=== PATIENT | female | born 1955 | race Two or more races ===

== ENCOUNTER 2017-06-27 05:08 | Inpatient (IN) | payer OTHER ==
[~2017-06-27] VITALS: Ht 162.6 cm; Wt 63.5 kg
[2017-06-27] VITALS (11 sets, daily range): BP systolic 105–131; BP diastolic 53–78
[2017-06-27] MEDS ORDERED: METOCLOPRAMIDE HCL 10 MG/2 ML VIAL ONE (05:26)
[2017-06-27] MEDS ORDERED: oxyCODONE HCL SR 10MG TAB.SR.12H PO ONE (05:26)
[2017-06-27] MEDS ORDERED: CELECOXIB 100 MG CAPSULE ONE (05:27)
[2017-06-27] MEDS ORDERED: ACETAMINOPHEN ES 500 MG TABLET ONE (05:27)
[2017-06-27] MEDS ORDERED: ANESTHESIA TRAY IN PYXIS 1 EA TRAY MC ONE (06:13)
[2017-06-27] MEDS ORDERED: KETOROLAC TROMETHAMINE INJ 30 MG/ML VIAL ONE ×2 (06:35→10:31)
[2017-06-27] MEDS ORDERED: BUPIVACAINE 0.25% 75 MG/30 ML VIAL ONE (06:35)
[2017-06-27] MEDS ORDERED: BACITRACIN 50000 UNITS/VIAL ONE (06:53)
[2017-06-27] MEDS ORDERED: MIDAZOLAM HCL 2 MG/2ML VIAL ONE (06:56)
[2017-06-27] MEDS ORDERED: MORPHINE SULFATE/PF 10 MG/10ML (1MG/ML) AMPUL ONE (06:56)
[2017-06-27] MEDS ORDERED: BUPIVACAINE 0.75% DEXT-PF 2 ML AMPUL ONE (07:01)
[2017-06-27] MEDS ORDERED: TRANEXAMIC ACID 1,500 MG in SODIUM CHLORIDE IRRIG SOLUTION 85 ML IR ONE (08:00)
[2017-06-27] MEDS ORDERED: MORPHINE SULFATE INJ 4 MG/ML DISP.SYRIN ONE (08:15)
[2017-06-27] MEDS ORDERED: oxyCODONE IR immediate release 5 MG ONE (10:34)
--- NOTE | 2017-06-27 11:05 | NUR ---
RN NOTES RECEIVED PATIENT FROM PACU DEPARTMENT, PATIENT IS A/OX4, VERBALLY RESPONSIVE, BREATHING EVEN AND UNLABORED, NO SOB NOTED, RECEIVED REPORT FROM RN FROM PACU, VITAL SIGNS OBTAINED AND STABLE, DAUGHTER AT BEDSIDE, ABDUCTOR PILLOW IN PLACE, PT ABLE TO MOVE RIGHT FOOT, POSITIVE FOR PEDAL PULSE, SKIN CHECK FOR CIRCULATION. PATIENT'S NEEDS ATTENDED AND MET, DENIES PAIN AT THIS TIME. WILL CONTINUE TO MONITOR.
[2017-06-27] MEDS ORDERED: MAGNESIUM HYDROXIDE 30 ML UDC PO PRN (12:30)
[2017-06-27] MEDS ORDERED: MORPHINE SULFATE INJ 4 MG/ML DISP.SYRIN IV PRN (12:30)
[2017-06-27] MEDS ORDERED: HYDROMORPHONE INJ 2 MG/ML DISP.SYRIN IV PRN (12:30)
[2017-06-27] MEDS ORDERED: diphenhydrAMINE HCL 25 MG CAPSULE PO PRN (12:30)
[2017-06-27] MEDS ORDERED: ONDANSETRON HCL/PF 4 MG/2 ML VIAL IVP PRN (12:30)
[2017-06-27] MEDS ORDERED: DULCOLAX 10 MG/SUPP.RECT RC PRN (12:30)
[2017-06-27] MEDS ORDERED: NALOXONE HCL 0.4 MG/ML AMPUL IV PRN (12:30)
[2017-06-27] MEDS ORDERED: COLACE 100 MG CAPSULE PO PRN (12:30)
[2017-06-27] MEDS ORDERED: TYLENOL 650 MG TABLET PO PRN (12:30)
--- NOTE | 2017-06-27 12:30 | NUR ---
RN NOTES SKIN ASSESSMENT COMPLETED, SKIN DRY AND INTACT. RIGHT HIP INCISION CLEAN AND DRY. NO S/SX OF BLEEDING NOTED.
[2017-06-27] MEDS ORDERED: METF-442 PO (12:34)
[2017-06-27] MEDS ORDERED: LISI10TA5 PO (12:34)
[2017-06-27] MEDS ORDERED: ATOR20TA PO (12:34)
[2017-06-27] MEDS ORDERED: BIMA2.5D5 EACHEYE (12:34)
[2017-06-27] MEDS ORDERED: TIMO5SOL11 EACHEYE (12:34)
[2017-06-27] MEDS: ONDANSETRON HCL/PF 4 MG/2 ML VIAL IVP SCH ×3 (12:47→23:45)
[2017-06-27] MEDS ORDERED: DEXTROSE 50%-WATER 50 ML DISP.SYRIN IV PRN (13:30)
[2017-06-27] MEDS ORDERED: Z GUARD REMEDY 2 OZ OINT TP PRN (13:30)
[2017-06-27] MEDS: IV 1/2NS 1000 ML 1,000 ML IV PRN (14:24)
--- NOTE | 2017-06-27 15:00 | NUR ---
RN NOTES PATIENT WAS SEEN AND EVALUATED BY PHYSICAL THERAPY, PATIENT WAS ABLE TO AMBULATE WITH WALKER. ENCOURAGED PATIENT TO TURN SIDE TO SIDE TO PREVENT SKIN BREAKDOWN, PATIENT VERBALIZED UNDERSTANDING. PATIENT ASSISTED WITH TURNING AND REPOSITIONING. RAY HEELS OFFLOADED. WILL CONTINUE TO MONITOR.
[2017-06-27] MEDS: ANCEF 1 G in IV D5W 50 ML IV SCH ×2 (15:36→23:47)
[2017-06-27 16:30] LABS: CREATININE 0.8 mg/dL (0.6-1.3); POTASSIUM 4.9 mmol/L (3.5-5.1)
[2017-06-27 16:51] LABS: BASOPHILS % (AUTO) 0.1 % (0.0-2.0); HEMATOCRIT 39 % (33-45); HEMOGLOBIN 13.2 g/dL (11.5-14.8); LYMPHOCYTES # (AUTO) 0.5 /CMM (0.8-4.8); LYMPHOCYTES % (AUTO) 3.2 % (20.0-44.0); MEAN CORPUSCULAR HGB CONC 34 g/dl (31.0-36.0); MEAN CORPUSCULAR VOLUME 87 fL (82-100); MONOCYTES # (AUTO) 0.3 /CMM (0.1-1.30); MONOCYTES % (AUTO) 1.9 % (2.0-12.0); NEUTROPHILS # (AUTO) 14.9 /CMM (1.8-8.9); NEUTROPHILS % (AUTO) 94.8 % (43.0-81.0); PLATELET COUNT (AUTO) 240 /CMM (150-450); RDW COEFFICIENT OF VARIATION 14.2 (11.5-15.0); RED BLOOD CELL COUNT(AUTO) 4.47 MIL/uL (4.0-5.2); WHITE BLOOD COUNT (AUTO) 15.8 K/uL (4.3-11.0)
[2017-06-27] MEDS: CELECOXIB 100 MG CAPSULE PO SCH (17:07)
[2017-06-27] MEDS: DOCUSATE SODIUM 100 MG CAPSULE PO SCH (17:07)
[2017-06-27] MEDS: METFORMIN 500 MG TABLET PO SCH (17:07)
[2017-06-27] MEDS: HYDROCODONE/APAP 5/325MG 1 EACH TABLET PO SCH ×2 (17:08→21:04)
[2017-06-27] MEDS: BLOOD SUGAR DIAGNOSTIC 1 EACH STRIP IN SCH ×2 (17:36→21:06)
[2017-06-27] MEDS: LISINOPRIL (10MG) 10 MG TABLET PO SCH (17:40)
[2017-06-27] MEDS: INSULIN REGULAR, HUMAN 100 UNIT/ML 3 ML VIAL SQ PRN ×2 (17:45→21:11)
[2017-06-27] MEDS: KETOROLAC TROMETHAMINE INJ 30 MG/ML VIAL IV SCH ×2 (17:47→23:46)
--- NOTE | 2017-06-27 18:18 | NUR ---
RN NOTES RESPIRATION RATE CHECKED QHOURLY AND WITHIN RANGE. 18-20 RESP/MIN. LEVEL OF CONSCIOUSNESS AND PAIN CHECKED EVERY 4 HOURS, PATIENT REMAINED A/OX 4, VERBALLY RESPONSIVE AND PATIENT KEPT COMFORTABLE, PATIENT VERBALIZES PAIN IS AT A TOLERABLE LEVEL. CIRCULATION/MOTION/SENSATION OF RIGHT LOWER EXTREMITIES COMPLETED AND ALL POSITIVE RESULT.
--- NOTE | 2017-06-27 18:37 | NUR ---
RN NOTES PATIENT A/OX4, VERBALLY RESPONSIVE, NO RESPIRATORY DISTRESS NOTED, VITALS STABLE, PATIENT COMFORTABLE AT THIS TIME, DENIES PAIN OR DISCOMFORT. CONTINUE ON IVF AT 75ML/HR. PATIENT TOLERATING CURRENT DIET. BLE HEELS OFFLOADED, ABDUCTOR PILLOW IN PLACE. ALL NEEDS ATTENDED AND MET, CALL LIGHT WITHIN REACH, WILL ENDORSE TO STAFF PSYCHIATRIST FOR IGOR.
--- NOTE | 2017-06-27 19:00 | NUR ---
TICKET WRITER NOTES RECEIVE PT IN BED A/O X 3, NO S/S OF DISTRESS, SAFETY MEASURES IN PLACE, CALL LIGHT WITHIN REACH, WILL CONTINUE TO MONITOR
[2017-06-27] MEDS: LATANOPROST EYE DROP 0.005% 2.5 ML BOTTLE OP SCH (21:08)
[2017-06-27] MEDS ORDERED: AMBIEN 5 MG TABLET PO PRN (22:00)
[2017-06-28] VITALS (7 sets, daily range): BP systolic 98–143; BP diastolic 65–95
[2017-06-28] MEDS: HYDROCODONE/APAP 5/325MG 1 EACH TABLET PO SCH ×6 (01:26→20:55)
[2017-06-28] MEDS: IV 1/2NS 1000 ML 1,000 ML IV PRN ×2 (05:05→16:15)
[2017-06-28] MEDS: KETOROLAC TROMETHAMINE INJ 30 MG/ML VIAL IV SCH ×4 (06:00→23:53)
[2017-06-28] MEDS: ONDANSETRON HCL/PF 4 MG/2 ML VIAL IVP SCH (06:00)
[2017-06-28] MEDS: INSULIN REGULAR, HUMAN 100 UNIT/ML 3 ML VIAL SQ PRN ×3 (06:11→21:26)
[2017-06-28] MEDS: BLOOD SUGAR DIAGNOSTIC 1 EACH STRIP IN SCH ×4 (06:18→21:24)
--- NOTE | 2017-06-28 06:25 | NUR ---
BLACK OXIDE OPERATOR CLOSING NOTES ASLEEP AND EASILY AWAKEN, HOB ELEVATED, SR, 89. ATTACH TO TELE MONITOR. STABLE. NO S/S OF ACUTE DISTRESS OR SOB NOTED.TOLERATING ROOM AIR 99% RESPIRATIONS EVEN AND UNLABORED. NEEDS ATTENDED AND ANTICIPATED; AFEBRILE, KEPT CLEAN AND DRY AND COMFORTABLE. BLE HEELS OFFLOADED, ABDUCTOR PILLOW IN PLACE AT ALL TIMES, PATIENT VERBALIZES PAIN IS AT A TOLERABLE LEVEL. CIRCULATION AND SENSATION, MOTION OF RIGHT LOWER EXTREMITIES COMPLETED EVERY 4 HOURS AND ALL POSITIVE RESULT. SAFETY MEASURES IN PLACE. BED LOW LOCKED SIDE RAILS UP, CALL LIGHT AND BEDSIDE TABLE WITHIN REACH. ENDORSE TO THE NEXT SHIFT POC.
[2017-06-28 06:41] LABS: BASOPHILS % (AUTO) 0.4 % (0.0-2.0); EOSINOPHILS % (AUTO) 0.7 % (0.0-6.0); HEMATOCRIT 33 % (33-45); HEMOGLOBIN 11.3 g/dL (11.5-14.8); LYMPHOCYTES # (AUTO) 2.4 /CMM (0.8-4.8); LYMPHOCYTES % (AUTO) 22.3 % (20.0-44.0); MEAN CORPUSCULAR HGB CONC 34 g/dl (31.0-36.0); MEAN CORPUSCULAR VOLUME 87 fL (82-100); MONOCYTES # (AUTO) 0.6 /CMM (0.1-1.30); MONOCYTES % (AUTO) 5.6 % (2.0-12.0); NEUTROPHILS # (AUTO) 7.5 /CMM (1.8-8.9); PLATELET COUNT (AUTO) 187 /CMM (150-450); RDW COEFFICIENT OF VARIATION 14.7 (11.5-15.0); RED BLOOD CELL COUNT(AUTO) 3.77 MIL/uL (4.0-5.2); WHITE BLOOD COUNT (AUTO) 10.5 K/uL (4.3-11.0)
--- NOTE | 2017-06-28 07:15 | NUR ---
RN CLOSING NOTES PATIENT RESTING IN BED. NONLABORED BREATHING NOTED ON ROOM AIR. NO SIGNS OF DISTRESS NOTED. PATIENT SR WITH HR OF 67 ON TELE MONITOR. DENYING PAIN AT THE MOMENT. AOX4. IV SITE ON RIGHT FOREARM 18 PATENT AND INTACT. ABDUCTOR PILLOW IN PLACE. DIOR CATHETER DRAINING CLEAR YELLOW URINE. BED IN LOWEST L0CKED POSITION. CALL LIGHT WITHIN REACH.
[2017-06-28 07:20] LABS: CALCIUM, SERUM 8.1 mg/dL (8.5-10.1); CREATININE 0.7 mg/dL (0.6-1.3); PHOSPHORUS 4.1 mg/dL (2.5-4.9); POTASSIUM 4.3 mmol/L (3.5-5.1)
[2017-06-28] MEDS: DOCUSATE SODIUM 100 MG CAPSULE PO SCH ×2 (08:12→16:19)
[2017-06-28] MEDS: CELECOXIB 100 MG CAPSULE PO SCH ×2 (08:12→16:19)
[2017-06-28] MEDS: ATORVASTATIN 10 MG TABLET PO SCH (08:13)
[2017-06-28] MEDS: METFORMIN 500 MG TABLET PO SCH ×2 (08:14→16:19)
[2017-06-28] MEDS: ENOXAPARIN SODIUM 40 MG/0.4 ML DISP.SYRIN SQ SCH (08:17)
[2017-06-28] MEDS: TIMOLOL -XE 0.5% 5 ML BOTTLE EACHEYE SCH (08:20)
[2017-06-28] MEDS ORDERED: KEY,NONCONTROL,TO KEEP IN PYXI 1 EA MC ONE (10:35)
[2017-06-28] MEDS: LISINOPRIL (10MG) 10 MG TABLET PO SCH ×2 (17:43→17:46)
--- NOTE | 2017-06-28 18:28 | NUR ---
RN CLOSING NOTES PATIENT RESTING IN BED. NONLABORED BREATHING NOTED ON ROOM AIR. NO SIGNS OF DISTRESS NOTED. DENYING PAIN AT THE MOMENT. AOX4. IV SITE ON RIGHT FOREARM 18 PATENT AND INTACT. ABDUCTOR PILLOW IN PLACE. DIOR CATHETER DRAINING CLEAR YELLOW URINE. DIOR TO BE REMOVED TOMORROW IN AM PER DR LANCE Lozano'S ORDERS. PATIENT NOTED WITH NONLABORED BREATHING THROUGHOUT SHIFT WITH SPO2 WNL ON ROOM AIR. PATIENT AOX4 THROUGHOUT SHIFT. PATIENT MONITORED FOR MOTION SENSATIONS AND CIRCULATION PER DR. GUALLPA'S ORDERS. NO SENSORY DEFICITS NOTED. PULSES OF UPPER EXTREMITIES AND LOWER EXTREMITIES STRONG UPON PALPATION WITH CAPILLARY REFILL LESS THAN 3 SECONDS. DRESSING ON RIGHT HIP INTACT WITH NO DRAINAGE AND NO BLOOD NOTED. PATIENT ENCOURAGED AND EDUCATED TO USE INCENTIVE SPIROMETRY EVERY 1 HOUR BED IN LOWEST L0CKED POSITION. CALL LIGHT WITHIN REACH. WILL ENDORSE TO NEXT SHIFT
--- NOTE | 2017-06-28 19:20 | NUR ---
RN NOTES RECEIVED PATIENT SITTING UP IN BED, ALERT AND ORIENTED, VERBALLY RESPONSIVE, WITH NO SOB, BREATHING EVEN AND UNLABORED AND IN NO ACUTE DISTRESS. PT CONTINUES TO RECEIVE IVF ORDERED. DENIES PAIN AT THIS TIME. ALL PATIENT'S NEEDS ATTENDED TO. CALL LIGHT PLACED WITHIN EASY REACH. PLACED BED IN LOW POSITION AND LOCKED IN PLACE. WILL CONTINUE TO MONITOR PT.
[2017-06-28] MEDS: LATANOPROST EYE DROP 0.005% 2.5 ML BOTTLE OP SCH (21:24)
[2017-06-29] MEDS: HYDROCODONE/APAP 5/325MG 1 EACH TABLET PO SCH ×4 (01:00→12:26)
--- NOTE | 2017-06-29 01:30 | NUR ---
RN NOTES PATIENT REFUSED ROUTINE PAIN MEDICATION, NORCO 5/325 MG, AT THIS TIME. PER PATIENT SHE ISN'T READY TO TAKE IT. WILL CONTINUE TO MONITOR PT.
--- NOTE | 2017-06-29 01:45 | NUR ---
RN NOTES OFFERED PAIN MEDICATION TO PATIENT ONCE MORE, PER PATIENT SHE FEELS NAUSEATED. NURSING INTERVENTION INITIATED. WILL CONTINUE TO MONITOR PT.
--- NOTE | 2017-06-29 01:50 | NUR ---
RN NOTES PATIENT NOTED WITH 1 EPISODE OF EMESIS CONTAINING FOOD PARTICLES, NO HEMOPTYSIS NOTED. PAGED SLEEP SCIENTIST MD, DR RAMOS, WITH NEW ORDERS TO START ZOFRAN 4MG IV Q6H PRN. ALL ORDERS NOTED AND CARRIED OUT. PATIENT CONTINUES TO REFUSE SCHEDULED PAIN MEDICATION, RESPECTED PATIENT'S DECISION. ALL PATIENT'S NEEDS ATTENDED TO AT THIS TIME. WILL CONTINUE TO MONITOR PATIENT.
--- NOTE | 2017-06-29 02:00 | NUR ---
RN NOTE NORCO 5/325 MG 1 TAB WASTED WITH SHIV DANIELLE.
[2017-06-29] MEDS: ONDANSETRON HCL/PF 4 MG/2 ML VIAL IV PRN ×2 (02:07→07:59)
[2017-06-29] MEDS: IV 1/2NS 1000 ML 1,000 ML IV PRN (05:08)
--- NOTE | 2017-06-29 05:25 | NUR ---
RN NOTE PATIENT REFUSED TO TAKE SCHEDULED PAIN MEDICATION IT CAN MAKE HER MORE NAUSEOUS. EXPLAINED RISKS AND BENEFITS TO PT BUT SHE CONTINUES TO REFUSE. RESPECTED PATIENT'S DECISION. WILL CONTINUE TO MONITOR.
[2017-06-29 05:26] VITALS: BP 147/75
[2017-06-29] MEDS: KETOROLAC TROMETHAMINE INJ 30 MG/ML VIAL IV SCH ×2 (06:00→11:45)
--- NOTE | 2017-06-29 06:33 | NUR ---
RN CLOSING NOTES PATIENT IN BED, ASLEEP BUT EASILY AROUSABLE, ALERT AND ORIENTED X 4, VERBALLY RESPONSIVE. PATIENT WITH EPISODE OF NAUSEA AND VOMITING. NOTED PATIENT WITH NO SOB, BREATHING EVEN AND UNLABORED, NO CHANGES IN LOC NOTED, NO DECREASE IN SENSATION IN BLE AND IN NO ACUTE DISTRESS. PT CONTINUES TO RECEIVE IVF ORDERED. ALL PATIENT'S NEEDS ATTENDED TO THROUGHOUT THE SHIFT. CALL LIGHT PLACED WITHIN EASY REACH. PLACED BED IN LOW POSITION AND LOCKED IN PLACE. PATIENT VERBALIZED THAT SHE DOESN'T WANT TO TAKE SCHEDULED PAIN MEDICATION AT THIS TIME, WANTS ACCUCHECK TO BE DONE LATER AND DIOR CATHETER TO BE TAKEN OUT AFTER BREAKFAST. EXPLAINED RISKS AND BENEFITS TO PATIENT BUT CONTINUES TO INSIST FOR ACCUCHECK AND D/C OF DIOR CATH LATER, RESPECTED PATIENT'S DECISION. WILL ENDORSE TO AM SHIFT NURSE FOR CONTINUITY OF CARE.
[2017-06-29 08:00] VITALS: BP 138/88
--- NOTE | 2017-06-29 08:00 | NUR ---
RN NOTES PATIENT A/OX4, VERBALLY RESPONSIVE, DENIES PAIN AT THIS TIME, PATIENT COMPLAINING OF NAUSEA, WILL ADMINISTER ANTI-NAUSEA MEDICATION, BS TAKEN RESULT 167, WILL HOLD INSULIN AT THIS TIME, PATIENT REFUSING TO EAT. DIOR CATHETER REMOVED WITH 275CC IN THE URINE BAG. ENCOURAGED PATIENT TO DRINK WATER, BUT PATIENT REFUSES, SHE VERBALIZED SHE JUST WANTS TO SLEEP AND REST FOR NOW.
[2017-06-29] MEDS: BLOOD SUGAR DIAGNOSTIC 1 EACH STRIP IN SCH ×2 (08:02→12:07)
[2017-06-29] MEDS: INSULIN REGULAR, HUMAN 100 UNIT/ML 3 ML VIAL SQ PRN ×2 (08:03→12:08)
[2017-06-29] MEDS: DOCUSATE SODIUM 100 MG CAPSULE PO SCH (08:57)
[2017-06-29] MEDS: TIMOLOL -XE 0.5% 5 ML BOTTLE EACHEYE SCH (08:58)
[2017-06-29] MEDS: CELECOXIB 100 MG CAPSULE PO SCH (08:58)
[2017-06-29] MEDS: METFORMIN 500 MG TABLET PO SCH (08:58)
[2017-06-29] MEDS: ENOXAPARIN SODIUM 40 MG/0.4 ML DISP.SYRIN SQ SCH (08:59)
[2017-06-29] MEDS: ATORVASTATIN 10 MG TABLET PO SCH (08:59)
--- NOTE | 2017-06-29 12:08 | NUR ---
RN NOTES PATIENT'S BS 134, INSULIN HELD AGAIN D/T PATIENT REFUSING TO EAT. PATIENT IS STILL C/O NAUSEA, IMPROVED BUT SHE'S AFRAID TO EAT AND IT MIGHT CAUSE HER TO VOMIT. ENCOURAGE PATIENT TO EAT A LITTLE BIT, BUT STATED SHE JUST WANTS TO REST.
[2017-06-29] MEDS ORDERED: BISACODYL SUPP (10 MG) 10 MG/SUPP.RECT SUPP.RECT RC ONE (13:30)
--- NOTE | 2017-06-29 15:00 | NUR ---
TAILERCPA PATIENT A/OX4, DAUGHTER AT BEDSIDE, PATIENT RECEIVED DISCHARGE INSTRUCTIONS AND VERBALIZED UNDERSTANDING. UNDERSTOOD THAT SHE WILL FOLLOW UP WITH DR. GUALLPA IN 10-14 DAYS, F/U WITH HOME HEALTH VIA WORKER'S COMP, AND TO RESUME HOME MEDICATIONS. PRESCRIPTIONS PROVIDED TO THE PATIENT EXPLAINED DIRECTIONS AND S/SX OF SIDE EFFECTS. ALL DISCHARGE PAPERWORKS SIGNED. PATIENT STATED SHE FEELS BETTER, FEELS LESS NAUSEOUS, ABLE TO TOLERATE CRACKERS AND DRINK WATER. DENIES PAIN AT THIS TIME. PATIENT HAS VOIDED 4 TIMES, AND HAD A BM X1, SKIN ASSESSMENT COMPLETED, SKIN DRY AND INTACT, EXCEPT FOR THE SURGICAL INCISION ON RIGHT HIP, STILL COVERED WITH CLEAN AND DRY DRESSING, NO BLEEDING NOTED. PIV ON RIGHT FA REMOVED AND APPLIED GAUZE AND TAPE. BELONGINGS RECONCILED AND COMPLETE, PATIENT ASSISTED TO THE LOBBY VIA WHEELCHAIR. LEFT THE FACILITY IN NO DISTRESS.
== END 2017-06-29 15:12 | disposition home or self-care (01) | DRG 468 ==
LOC: SURGERY 05:08 → MED 11:07 → TELE 12:43 → MED 06-28 11:44
PROVIDERS: ADMIT Orthopaedic Surgery; ATTEND Orthopaedic Surgery
PROC: 0SW90JZ Revision of Synthetic Substitute in Right Hip Joint, Open Approach (ICD-10-PCS; principal; 2017-06-27 08:00)
DX: M16.11 Unilateral primary osteoarthritis, right hip (principal); E11.9 Type 2 diabetes mellitus without complications; E78.5 Hyperlipidemia, unspecified; H40.9 Unspecified glaucoma; I10 Essential (primary) hypertension; Z79.84 Long term (current) use of oral hypoglycemic drugs
CPT/HCPCS: 36415; 72170-TC; 80048-TC; 80061-TC; 82962-TC; 83735-TC; 84100-TC; 85025-TC; 86850-TC; 86921-TC; 87081-TC; 88300-TC; 97116-TC; 97530-TC; A4217; A4606; A6402; J0690; J1100; J1650; J1815; J1885; J2250; J2270; J2274; J2310; J2405; J2704; J2765; J3490; J7030; J7060; Z7610